=== PATIENT | female | born 1950 | race Caucasian/White ===

== ENCOUNTER 2016-06-04 16:00 | Outpatient (RCR) | payer OTHER ==
[~2016-06-04 16:00] MED LIST: ALEVE 220MG220 MG PO; ANTIVERT 12.512.5 MG PO; ASPIR-LOW81 MG PO; ASPIR-LOX325 MG PO; ASPIRIN 81M81 MG/TA2 PO; AUGMENTIN XR 101 TER PO; CALCIUM 500500 M2 PO; CALTRATE-600 W600 MG PO; CEPHALEXIN500 M1 PO; CINNAMON500 MG PO; EPA FISH OIL1000 MG PO; INDERAL80 MG PO; LEVAQUIN 750MG750 M1 PO; MAGNESIUM500 MG PO; MASON NATURAL500 MG PO; MULTIPLE VITAMI1 TAB PO; MVI; NAPROSYN500 MG PO; NORCO 325 MG-7.1 TAB PO; PAROXETINE20 MG PO; PAXIL20 MG PO; PERCOCET 325 MG1 TA2 PO; PHENERGAN 25 TA25 MG PO; PREDNISONE20 MG PO; PRILOSEC 20MG20 MG PO; PRINIVIL10 MG PO; REPLENEX PO; SINGULAIR 110 MG/TAB; VENTOLIN0.09 MG IH; ZOFRAN 4MG T4 MG/TAB PO; ZOFRAN ODT4 MG PO; ZYRTEC5 MG PO; [UNRECOGNIZED DRUG - OTHER]
[2016-06-06] MEDS ORDERED: PREDNISONE20 MG PO (07:44)
[2016-06-06] MEDS ORDERED: ADRENACLICK IM (07:45)
== END 2016-07-16 08:29 | disposition home or self-care (01) ==
LOC: WSPT 16:00
DX: S83.411D Sprain of medial collateral ligament of right knee, subsequent encounter (principal); X58.XXXD Exposure to other specified factors, subsequent encounter
CPT/HCPCS: G0283-GP

== ENCOUNTER 2016-06-06 06:57 | Emergency (ER) | payer OTHER ==
[2005-05-09 18:17] VITALS: BP 84/49
[~2016-06-06] VITALS: Ht 162.6 cm; Wt 85.5 kg
[2016-06-06 07:08] VITALS: TEMP 97.1
[2016-06-06] MEDS ORDERED: PREDNISONE20 MG PO (07:44)
[2016-06-06] MEDS ORDERED: ADRENACLICK IM (07:45)
[2016-06-06 08:31] VITALS: BP 133/76; PULSE 86
== END 2016-06-06 08:50 | disposition home or self-care (01) ==
LOC: COL.ER 06:57
DX: L50.9 Urticaria, unspecified (principal); R06.00 Dyspnea, unspecified; I10 Essential (primary) hypertension; Z87.891 Personal history of nicotine dependence
CPT/HCPCS: J0171; J1200; J2405; J2930

== ENCOUNTER → 2016-07-19 | Outpatient (REF) ==
[~2016-07-19] MED LIST changes: +ADRENACLICK IM
== END ==
LOC: WSOH 10:34
DX: Z01.89 Encounter for other specified special examinations (principal)

== ENCOUNTER 2016-07-22 14:46 | Outpatient (RCR) | payer OTHER ==
[2016-09-02] MEDS ORDERED: PREDNISONE20 MG PO (18:02)
== END 2016-09-13 13:27 ==
LOC: WSOH 14:46
DX: J45.901 Unspecified asthma with (acute) exacerbation (principal); R10.84 Generalized abdominal pain; Y99.0 Civilian activity done for income or pay

== ENCOUNTER 2016-09-02 16:44 | Emergency (ER) | payer OTHER ==
[2005-05-09 18:17] VITALS: BP 84/49
[~2016-09-02] VITALS: Ht 162.6 cm; Wt 81.8 kg
[2016-09-02 16:49] VITALS: TEMP 97
[2016-09-02 17:30] LABS: HEMATOCRIT 47.6 % (37.0-47.0); HEMOGLOBIN 15.7 g/dl (12.5-16.0); MEAN CELL VOLUME 92 fl (80.0-100.0); MEAN CORPUSCULAR HEMOGLOBIN 30 pg (27.0-31.0); MEAN CORPUSCULAR HGB CONC 33 g/dl (33.0-37.0); MEAN PLATELET VOLUME 13.6 fl (7.4-10.4); PLATELET COUNT 210 K/mm3 (130-400); RED BLOOD COUNT 5.17 M/mm3 (4.10-5.30); REDCELL DISTRIBUTION WIDTH-CV 13.2 % (11.5-14.5)
[2016-09-02 17:38] LABS: VENOUS BLOOD GAS BE -2.5 (-4-4); VENOUS BLOOD GAS SAO2 65.2 % (60-80)
[2016-09-02 17:39] LABS: VENOUS BLOOD GAS SITE VENIPUNCTURE
[2016-09-02 17:49] LABS: ADJUSTED CALCIUM 9.5 mg/dL (8.4-10.2); ALANINE AMINOTRANSFERASE 34 U/L (9-52); ALBUMIN 4.4 gm/dL (3.5-5.0); ALKALINE PHOSPHATASE 98 U/L (50-136); ANION GAP 16 mmol/L (7-16); BILIRUBIN,TOTAL 0.7 mg/dL (0.0-1.0); BLOOD UREA NITROGEN 18 mg/dL (7-17); CALCIUM 9.8 mg/dL (8.4-10.2); CARBON DIOXIDE 24 mmol/L (22-30); CHLORIDE 104 mmol/L (98-107); CREATININE, serum 0.68 mg/dL (0.52-1.25); GLUCOSE 129 mg/dL (74-106); LIPASE 141 U/L (23-300); POTASSIUM 3.3 mmol/L (3.4-5.0); SODIUM 143 mmol/L (137-145); TOTAL PROTEIN 7.4 gm/dL (6.4-8.2)
[2016-09-02 18:01] LABS: B-TYPE NATRIURETIC PEPTIDE 65 pg/mL (0-125)
[2016-09-02] MEDS ORDERED: PREDNISONE20 MG PO (18:02)
[2016-09-02 18:06] LABS: TROPONIN-I < 0.012 ng/mL (0.000-0.034)
[2016-09-02 18:12] LABS: WHITE BLOOD COUNT 22.7 K/mm3 (4.8-10.8)
[2016-09-02 18:13] LABS: ADD PATHOLOGY DIFF REVIEW NO
[2016-09-02 18:23] LABS: BAND 5 % (0-10); BASOPHIL 1 % (0-2); EOSINOPHIL 3 % (0-4); NEUTROPHILS 56 % (42.0-75.2); TOTAL CELLS COUNTED 100
[2016-09-02 18:38] VITALS: BP 135/80; PULSE 124
== END 2016-09-02 18:39 | disposition home or self-care (01) ==
LOC: COL.ER 16:44
PROVIDERS: Emergency Medicine
DX: J06.9 Acute upper respiratory infection, unspecified (principal); J45.909 Unspecified asthma, uncomplicated; B34.9 Viral infection, unspecified; I10 Essential (primary) hypertension; R73.03 Prediabetes; Z87.891 Personal history of nicotine dependence
CPT/HCPCS: J7512

== ENCOUNTER 2017-01-14 13:26 | Outpatient (RCR) | payer OTHER | END 2017-01-28 08:14 | LOC: WSOH 13:26 | DX: M50.30 Other cervical disc degeneration, unspecified cervical region (principal); M54.12 Radiculopathy, cervical region; M25.511 Pain in right shoulder; R20.0 Anesthesia of skin; R20.2 Paresthesia of skin ==

== ENCOUNTER → 2017-03-07 | Outpatient (CLI) | payer BC | LOC: MC.RAD 09:00 | DX: Z12.31 Encounter for screening mammogram for malignant neoplasm of breast (principal) ==

== ENCOUNTER → 2018-03-23 | Outpatient (CLI) | payer OTHER | LOC: MC.RAD 07:09 | DX: Z12.31 Encounter for screening mammogram for malignant neoplasm of breast (principal) ==

== ENCOUNTER → 2018-06-19 | Outpatient (CLI) | payer OTHER ==
[2018-06-19 08:34] LABS: ALBUMIN 4.2 gm/dL (3.5-5.0); BILIRUBIN,TOTAL 0.3 mg/dL (0.0-1.0); CALCIUM 9.3 mg/dL (8.4-10.2); CHOLESTEROL RISK RATIO 3.5; CREATININE, serum 0.76 mg/dL (0.52-1.25); POTASSIUM 4.4 mmol/L (3.4-5.0); TOTAL PROTEIN 7.4 gm/dL (6.4-8.2)
[2018-06-19 13:52] LABS: URINE MICROALBUMIN 1.6 mg/dL (0.0-1.7)
== END ==
LOC: COL.LAB 07:42
PROVIDERS: Family Medicine
DX: E11.9 Type 2 diabetes mellitus without complications (principal)

== ENCOUNTER → 2018-06-26 | Outpatient (CLI) | payer OTHER ==
[2018-06-26 17:12] LABS: CALCIUM 9.5 mg/dL (8.4-10.2); CREATININE, serum 0.63 mg/dL (0.52-1.25); POTASSIUM 4.2 mmol/L (3.4-5.0)
== END ==
LOC: ZCOL.LAB 16:25
PROVIDERS: Family Medicine
DX: I10 Essential (primary) hypertension (principal)

== ENCOUNTER → 2018-09-30 | Outpatient (CLI) | payer OTHER ==
[2018-09-30 15:51] LABS: ALANINE AMINOTRANSFERASE 35 U/L (9-52); AST,SGOT 46 U/L (15-37); CREATINE KINASE 38 U/L (30-135)
== END ==
LOC: COL.LAB 15:21
PROVIDERS: Family Medicine
DX: Z51.81 Encounter for therapeutic drug level monitoring (principal); E11.9 Type 2 diabetes mellitus without complications

== ENCOUNTER → 2019-12-14 | Outpatient (CLI) | payer OTHER ==
[~2019-12-14] MED LIST changes: +AMARYL 2MG T2 MG/TAB PO; +EPIPEN 2-PAK1 MG/ML IM; +GLUCOPHAGE1000 MG PO; +LIPITOR 40MG TA40 MG PO
== END ==
LOC: COL.RAD 12:03
DX: M54.17 Radiculopathy, lumbosacral region (principal); M48.02 Spinal stenosis, cervical region

== ENCOUNTER → 2019-12-30 | Outpatient (CLI) | payer OTHER ==
[2005-05-09 18:17] VITALS: BP 84/49
[~2019-12-30] VITALS: Ht 162.6 cm; Wt 87.0 kg
[~2019-12-30] MED LIST changes: +AMARYL4 MG PO; +BENICAR 20MG TA20 MG PO; +CALCIUM CARBON650 M2 PO; +CALCIUM/MAGNESI1 T13 PO; +ONCOVITE1 TAB PO; +PRESERVISION1 SGL PO; +SINGULAIR 110 MG/TAB PO; +VITAMIN D31000 IU PO; +XALATAN EYE DROPS OU; +ZYRTEC 10MG10 MG PO; +[UNRECOGNIZED DRUG - OTHER] PO
[2019-12-30 13:00] VITALS: BP 177/96; PULSE 83
[2019-12-30 14:30] VITALS: BP 164/90; PULSE 78
== END ==
LOC: COL.RAD 12-29 13:00
DX: M54.12 Radiculopathy, cervical region (principal); M54.16 Radiculopathy, lumbar region
CPT/HCPCS: J1100; J3301

== ENCOUNTER → 2020-05-22 | Outpatient (REF) | LOC: WSOH 08:30 | DX: Z20.822 Contact with and (suspected) exposure to COVID-19 (principal) ==

== ENCOUNTER → 2020-08-11 | Outpatient (CLI) | payer OTHER | LOC: MC.RAD 07:29 | DX: Z12.31 Encounter for screening mammogram for malignant neoplasm of breast (principal) ==

== ENCOUNTER → 2024-01-15 | Outpatient (CLI) | payer MEDICARE | LOC: COL.RAD 08:48 | DX: M47.26 Other spondylosis with radiculopathy, lumbar region (principal); M51.16 Intervertebral disc disorders with radiculopathy, lumbar region; M48.02 Spinal stenosis, cervical region; M48.061 Spinal stenosis, lumbar region without neurogenic claudication ==